=== PATIENT | male | born 1975 | race Caucasian/White ===

== ENCOUNTER 2016-10-22 13:28 | Emergency (ER) | payer SELFPAY ==
[2016-10-22] MEDS ORDERED: ONDANSETRON 4 MG TAB.RAPDIS PO ONE (14:42)
[2016-10-22] MEDS ORDERED: MECLIZINE HCL 25 MG TABLET PO ONE (14:42)
[2016-10-22] MEDS ORDERED: ONDANSETRON ODT 4 MG TAB (6 TAB/DSPK) PO PRN (15:05)
--- NOTE | 2016-10-22 15:07 | ER Document Report ---
HPI - HPI Patient complains to provider of: right ear pain Onset: Last week Onset/Duration: Persistent Quality of pain: Achy Severity: Severe Pain Level: 5 Context: Patient presents emergency department with complaints of right ear pain for the past week. He reports he's been cleaning the ear with peroxide. He denies fever vomiting diarrhea. He denies cold symptoms such as cough runny nose sinus pain. Denies trauma to the ear. Patient also reports that his ear hurt so much is making him nauseated and dizzy. He reports he was so dizzy today he couldn't climb up a ladder at work. Patient denies chest pain shortness of breath. Associated Symptoms: Nausea, Other - dizziness Exacerbated by: Denies Relieved by: Denies Similar symptoms previously: No Recently seen / treated by doctor: No - DERM Skin Color: Normal Past Medical History - General Information source: Patient - Social History Smoking Status: Current Some Day Smoker Cigarette use (# per day): No - cigars Chew tobacco use (# tins/day): No Frequency of alcohol use: Occasional Drug Abuse: None Occupation: construction Lives with: Family Family History: Reviewed & Not Pertinent Patient has suicidal ideation: No Patient has homicidal ideation: No Renal/ Medical History: Denies: Hx Peritoneal Dialysis Psychiatric Medical History: Reports: Hx Anxiety Traumatic Medical History: Reports: Hx Fractures - nose Past Surgical History: Reports: Hx Tonsillectomy - Immunizations Hx Diphtheria, Pertussis, Tetanus Vaccination: No Vertical Provider Document - CONSTITUTIONAL Agree With Documented VS: Yes Exam Limitations: No Limitations General Appearance: WD/WN, No Apparent Distress - INFECTION CONTROL TRAVEL OUTSIDE OF THE [place] IN LAST 30 DAYS: No - HEENT HEENT: Atraumatic, Normocephalic. negative: Conjuctival Injection, Pharyngeal Exudate, Pharyngeal Tenderness, Pharyngeal Erythema, Tympanic Membrane Red, Tympanic Membrane Bulging - NECK Neck: Normal Inspection, Supple. negative: Lymphadenopathy-Left, Lymphadenopathy-Right - RESPIRATORY Respiratory: Breath Sounds Normal, No Respiratory Distress O2 Sat by Pulse Oximetry: 98 - CARDIOVASCULAR Cardiovascular: Regular Rate, Regular Rhythm - MUSCULOSKELETAL/EXTREMETIES Musculoskeletal/Extremeties: ALEKSEY CUELLO - NEURO Level of Consciousness: Awake, Alert, Appropriate Motor/Sensory: No Motor Deficit - DERM Integumentary: Warm, Dry Course - Re-evaluation Re-evalutation: 10/22/16 15:11 Patient reports that he was here a few years ago with the same symptoms and it was the same ear that was bothering him with the same symptoms. He reports at that time he was given something for the dizziness. He never followed up with ENT. - Vital Signs Vital signs: Temp Pulse Resp BP Pulse Ox 97.5 F 71 16 126/92 H 98 10/22/16 13:43 10/22/16 13:43 10/22/16 13:43 10/22/16 13:43 10/22/16 13:43 - EKG Interpretation by Me EKG shows normal: Sinus rhythm When compared to previous EKG there are: No significant change Discharge - Discharge Clinical Impression: Right ear pain, Dizziness, Nausea, Elevated blood pressure reading Condition: Stable Disposition: HOME, SELF-CARE Instructions: Meclizine ([facility]), Antinausea Medication ([facility]), Dizziness ([facility]), ENT Additional Instructions: *You have been evaluated for ear pain with dizziness, nausea and elevated blood pressure reading *Take medication as prescribed for dizziness and nausea *Follow up with your primary care provider within 3 days for recheck *Follow up with ENT *Return to ED for worsening condition, changes, needs Monitor your blood pressure. Your blood pressure was elevated today. This may be because you were anxious, in pain or because you need medication. It is important to follow up with your primary care provider for full evaluation. Prescriptions: Meclizine HCl [Antivert 25 mg Tablet] 25 mg PO TID PRN #21 tablet PRN Reason: Forms: Elevated Blood Pressure
[2016-10-22 16:12] VITALS: BP 125/85
--- NOTE | 2016-10-22 22:21 | EKG REPORT ---
SEVERITY:- NORMAL ECG - SINUS RHYTHM : Confirmed by: Artemio Aquino 22-Oct-2016 22:20:37
== END 2016-10-22 16:12 | disposition home or self-care (01) ==
LOC: ER 13:28
DX: H92.01 Otalgia, right ear (principal); R11.0 Nausea; R42 Dizziness and giddiness; F17.290 Nicotine dependence, other tobacco product, uncomplicated; R03.0 Elevated blood-pressure reading, without diagnosis of hypertension
CPT/HCPCS: 93005; 99283; 93010; S0119